=== PATIENT | female | born 1995 | race Caucasian/White ===

== ENCOUNTER → 2023-09-22 | Outpatient (CLI) | payer OTHER ==
[2023-09-22 15:30] VITALS: BP 134/80; PULSE 72; RESP 16; TEMP 98.6; BMI 38.2
--- NOTE | 2023-09-22 16:12 | P.HPBAR ---
Bariatric H&P - History & Physicial H&P Date: 09/22/23 History & Physicial: Visit/CC: New Pt Patient initial contact: Initial weight: 104.326 kg Initial weight in pounds: 230.00 Height: 5 ft 5 in Initial BMI: 38.2 Last weight: Current weight: 104.326 kg Current weight in pounds: 230.00 Current BMI: 38.2 [place] body weight (based on NIH guidelines): 56.699 kg Excess body weight loss: 0.0% The patient is a 28 year-old F who presents for Bariatric Assessment. Patient is here to discuss bariatric surgery. Her sister is being evaluated for sleeve gastrectomy and was seen here as a new patient just a few weeks ago. She has suffered with her weight for many years. Has tried a variety of different weight loss methods. Takes no oral medications. Past medical history includes PCOS and elevated liver enzymes. Previous surgeries include laparoscopic cholecystectomy and ERCP. Patient denies dysphagia DVT or tobacco use. Mild GERD symptoms. Takes Tums as needed. Review of Systems The patient denies any acute changes in vision or hearing, no dysphagia or odynophagia, no chest pain or shortness of breath, no dysuria or hematuria, no headache, no runny nose, no rectal bleeding or melena, no unexplained weight loss Past Medical History Smoking Status: Unknown if ever smoked Surgical - Exam Vital Signs Temp Pulse Resp BP 98.6 F 72 16 134/80 09/22/23 15:14 09/22/23 15:14 09/22/23 15:14 09/22/23 15:14 Physical exam: General: Well-developed, well-nourished HEENT: Normocephalic, sclerae nonicteric Abdomen: Nontender, nondistended Extremities: No edema Neuro: Alert and oriented Bariatric Assessment & Plan (1) Severe obesity (BMI 35.0-39.9) with comorbidity Narrative/Plan: 28-year-old female with severe obesity. Patient is interested in sleeve gastrectomy. Her sister is present with her today. They feel they would do well to have the surgery done at a similar time so they can support 1 another. Risks of sleeve gastrectomy and gastric bypass discussed in detail. Anticipated weight loss with both surgeries reviewed as well. The risks of bleeding, infection, stenosis, stricture, leak, abscess, fistula formation, peritonitis, poor weight loss, reflux, vomiting, conversion to an open procedure, aborting sleeve gastrectomy, [place], PE, DVT, and were discussed. The patient understands. Will proceed with EGD in the next month or so. Status: Acute Bariatric Checklist Checklist: Plan: Checklist: EGD: 1. Hiatal hernia: 2. H. Pylori: HgbA1c: Vitamin D: Smoking: Primary care physician referral: Psychiatry clearance: Cardiology clearance: Sleep study: Diet journal: VTE risk score: VTE risk level: Rehab needs at discharge:
[2023-09-22 20:33] LABS: HCT 43.8 % (37.2-46.3); HGB 14.7 g/dL (12.0-15.0); MCH 30.1 pg (27.0-32.0); MCHC 33.6 g/dL (32.0-37.0); MCV 89.6 FL (80.0-97.0); Mean Platelet Volume 10.4 FL (9.5-12.2); NRBC Per 100 WBC 0.02 X 10*3/uL (0.00-0.01); Platelet Count 354 X 10*3/uL (140-440); RBC 4.89 X 10*6/uL (4.10-5.20); RDW 12.3 % (11.5-14.5); WBC 10.82 X 10*3/uL (4.50-10.00)
[2023-09-22 21:07] LABS: ALT 34 U/L (8-44); AST 17 U/L (13-35); Albumin 4.9 g/dL (3.8-4.9); Albumin/Globulin Ratio 1.36 Ratio (1.60-3.17); Alkaline Phosphatase 71 U/L (41-126); BUN/Creat Ratio 13.67 Ratio (12.00-20.00); Blood Urea Nitrogen 8.2 mg/dL (9.0-27.0); Calcium 9.8 mg/dL (8.7-10.3); Carbon Dioxide 24.3 mmol/L (21.6-31.8); Chloride 101 mmol/L (96-109); Globulin 3.6 g/dL (1.6-3.3); Glucose 82 mg/dL (70-110); Iron 45 UG/DL (50-170); Potassium 4.1 mmol/L (3.5-5.5); Sodium 140 mmol/L (135-145); Total Bilirubin 0.4 mg/dL (0.3-1.2); Total Protein 8.5 g/dL (6.2-8.2)
[2023-09-22 21:11] LABS: Urine Alcohol Negative (Negative); Urine Barbiturate Negative (Negative); Urine Cocaine Negative (Negative); Urine Methadone Negative (Negative); Urine Opiates Negative (Negative); Urine Phencyclidine Negative (Negative)
== END ==
LOC: BARWHC3 14:38
PROVIDERS: ATTEND Surgery
DX: E66.01 Morbid (severe) obesity due to excess calories (principal); K90.89 Other intestinal malabsorption; E55.9 Vitamin D deficiency, unspecified; Z68.38 Body mass index [BMI] 38.0-38.9, adult
CPT/HCPCS: 84425; 80053; 82607; 82746; 83540; 85027; 82306; 80306; 80307; 93005; G0463; 99202

== ENCOUNTER → 2023-10-19 | Outpatient (CLI) | payer OTHER ==
[2023-10-20 09:53] VITALS: BMI 38.2
== END ==
LOC: BARWHC3 12:44
PROVIDERS: ATTEND Surgery
DX: E66.01 Morbid (severe) obesity due to excess calories (principal); Z71.3 Dietary counseling and surveillance; Z68.38 Body mass index [BMI] 38.0-38.9, adult
CPT/HCPCS: 97804; G0463; 99211

== ENCOUNTER → 2023-11-10 | Outpatient (CLI) | payer OTHER ==
[2023-11-10 13:33] VITALS: BP 127/85; PULSE 76; TEMP 98.7; BMI 38.7
--- NOTE | 2023-11-10 14:42 | P.BASOAP ---
Subjective Progress Note Date: 11/10/23 Principal diagnosis: Morbid obesity 28-year-old female returns after recent preop EGD for sleeve gastrectomy. Patient had mild gastritis and a small gastric polyp. Otherwise doing well. No changes. Objective - Vital Signs Vital signs: Vital Signs Temp 98.7 F 11/10/23 13:23 Pulse 76 11/10/23 13:23 Resp BP 127/85 11/10/23 13:23 Pulse Ox FiO2 Intake & Output 11/09/23 11/10/23 11/10/23 18:59 06:59 18:59 Weight 105.687 kg - Exam Abdomen: Soft, nontender, nondistended Assessment/Plan (1) Severe obesity (BMI 35.0-39.9) with comorbidity Narrative/Plan: 28-year-old female with morbid obesity. Patient remains interested in sleeve gastrectomy. Recent EGD findings discussed. Preoperative consent form along with risks and benefits discussed again in detail. Will schedule for laparoscopic da Mirela assisted sleeve gastrectomy, possible open in the next month or 2. The risks of bleeding, infection, stenosis, stricture, leak, abscess, fistula formation, peritonitis, poor weight loss, reflux, vomiting, conversion to an open procedure, aborting sleeve gastrectomy, [place], PE, DVT, and were discussed. The patient understands and wishes to proceed. Plan: Date: 11/10/23 Initial Weight: 104.326 kg Initial BMI: 38.2 Current Weight: 105.687 kg Current BMI: 38.7 Type of Surgery: Total Volume in Band: Previous Volume: Volume Removed: Volume Added: Band Size:
== END | disposition home or self-care (01) ==
LOC: BARWHC3 12:53
PROVIDERS: ATTEND Surgery
DX: E66.01 Morbid (severe) obesity due to excess calories (principal); K29.70 Gastritis, unspecified, without bleeding; Z98.84 Bariatric surgery status; Z68.38 Body mass index [BMI] 38.0-38.9, adult
CPT/HCPCS: 99211